=== PATIENT | female | born 1965 | race Caucasian/White ===

== ENCOUNTER 2022-02-13 09:40 | Emergency (ER) | payer MEDICARE ==
[~2022-02-13] VITALS: Ht 152.4 cm; Wt 68.0 kg
[2022-02-13] MEDS ORDERED: PERMETHRIN60 GM TOP (10:13)
[2022-02-13] MEDS ORDERED: MUPIROCIN22 GM TOP (10:13)
== END 2022-02-13 10:25 | disposition home or self-care (01) ==
LOC: ER 09:51
DX: B85.2 Pediculosis, unspecified (principal); L98.419 Non-pressure chronic ulcer of buttock with unspecified severity; M32.9 Systemic lupus erythematosus, unspecified; I10 Essential (primary) hypertension; F17.200 Nicotine dependence, unspecified, uncomplicated; Z88.1 Allergy status to other antibiotic agents; Z88.0 Allergy status to penicillin; Z88.2 Allergy status to sulfonamides
CPT/HCPCS: 99282

== ENCOUNTER 2022-07-19 09:03 | Emergency (ER) | payer MEDICARE, OTHER ==
[~2022-07-19] VITALS: Ht 152.4 cm; Wt 68.0 kg
[~2022-07-19 09:03] MED LIST: MUPIROCIN22 GM TOP; PERMETHRIN60 GM TOP
[2022-07-19] MEDS ORDERED: SODIUM CHLORIDE 0.9% 1000ML 1,000 ML IV STA (09:32)
[2022-07-19] MEDS ORDERED: ONDANSETRON HCL INJ 2MG/ML 2ML 2 MG/ML VIAL IV STA (09:32)
[2022-07-19 10:13] LABS: BACTERIA,URINE FEW /HPF; CLARITY,URINE TURBID (CLEAR); COLOR,URINE YELLOW (YELLOW); EPITHELIAL CELLS,URINE MODERATE /LPF; KETONES,URINE NEGATIVE (NEGATIVE); LEUKOCYTE ESTERASE ,URINE TRACE (NEGATIVE); NITRITE,URINE NEGATIVE (NEGATIVE); PROTEIN,URINE DIPSTICK >=300 (NEGATIVE); RBC,URINE 0-5 /HPF (0-5); URINE UROBILINOGEN 0.2 mg/dL (0.2 - 1); WBC,URINE (MAN) 21-50 /HPF (0-5)
[2022-07-19] MEDS ORDERED: ONDANSETRON ODT4 MG PO (11:33)
[2022-07-19] MEDS ORDERED: CEFUROXIME250 MG PO (11:33)
== END 2022-07-19 11:47 | disposition home or self-care (01) ==
LOC: ER 09:26
DX: R50.9 Fever, unspecified (principal); J10.1 Influenza due to other identified influenza virus with other respiratory manifestations; N39.0 Urinary tract infection, site not specified; I10 Essential (primary) hypertension; M32.9 Systemic lupus erythematosus, unspecified; Z20.822 Contact with and (suspected) exposure to COVID-19; F17.210 Nicotine dependence, cigarettes, uncomplicated
CPT/HCPCS: 0223U; 36415; 81001; 87086; 87186; 87400; 99282

== ENCOUNTER 2022-08-24 08:58 | Emergency (ER) | payer MEDICARE, OTHER ==
[~2022-08-24] VITALS: Ht 152.4 cm; Wt 68.0 kg
[~2022-08-24 08:58] MED LIST changes: +CEFUROXIME250 MG PO; +ONDANSETRON ODT4 MG PO
[2022-08-24] MEDS ORDERED: KETOROLAC TROMETHAMINE 30 MG/ML VIAL IM NR (09:16)
[2022-08-24] MEDS ORDERED: ACETAMINOPHEN 325 MG TAB PO ONE (09:30)
[2022-08-24] MEDS ORDERED: ACETAMINOPHEN 325 MG TAB ONE (09:33)
[2022-08-24] MEDS ORDERED: KETOROLAC TROMETHAMINE 30 MG/ML VIAL ONE (09:34)
== END 2022-08-24 09:30 | disposition home or self-care (01) ==
LOC: ER 09:04
DX: B34.9 Viral infection, unspecified (principal); R05.9 Cough, unspecified; M32.9 Systemic lupus erythematosus, unspecified; I12.9 Hypertensive chronic kidney disease with stage 1 through stage 4 chronic kidney disease, or unspecified chronic kidney disease; N18.30 Chronic kidney disease, stage 3 unspecified; Z88.1 Allergy status to other antibiotic agents; Z88.0 Allergy status to penicillin; Z88.2 Allergy status to sulfonamides; Z87.891 Personal history of nicotine dependence
CPT/HCPCS: 99282; J1885